=== PATIENT | male | born 1950 | race Caucasian/White ===

== ENCOUNTER 2018-06-14 18:31 | Inpatient (IN) | payer OTHER ==
[~2018-06-14] VITALS: Ht 172.7 cm; Wt 77.1 kg
[~2018-06-14 18:31] MED LIST: ASPIR-LOW81 MG PO; AZITHROMYCIN 2250 MG PO; CARDIZEM CD240 MG PO; CARVEDILOL12.5 MG PO; CEFUROXIME250 MG PO; GUANFACINE PO; LEVOTHYROXIN0.025 MG PO; LIPITOR20 MG PO; VYVANSE40 MG PO; ZESTRIL40 MG PO; ZYLOPRIM100 MG PO
[2018-06-14 18:34] VITALS: BP 199/97
[2018-06-14] MEDS ORDERED: STARLIX120 MG PO (18:38)
[2018-06-14] MEDS ORDERED: LISINOPRIL20 MG PO (18:38)
[2018-06-14] MEDS ORDERED: SYNTHROID50 MCG PO (18:38)
[2018-06-14 19:38] LABS: ABSOLUTE BASOPHILS 0.1 thou/uL (0.0-0.2); ABSOLUTE EOSINOPHILS 0.1 thou/uL (0.0-0.7); ABSOLUTE LYMPHOCYTES 2.2 thou/uL (0.8-5.3); ABSOLUTE MONOCYTES 0.8 thou/uL (0.0-1.2); ABSOLUTE NEUTROPHILS 5.7 thou/uL (1.6-8.1); BASOPHILS 0.6 %; EOSINOPHILS 1.2 %; HEMATOCRIT 42.2 % (42.0-52.0); HEMOGLOBIN 14.4 gm/dL (14.0-18.0); MCH 29.4 pg (26.0-34.0); MCHC 34.3 g/dL (28.0-37.0); MCV 85.8 fL (80.0-100.0); MONOCYTES 9.1 %; MPV 9.2 fl. (7.2-11.1); NUCLEATED RBCS 0 /100WBC; PLATELET COUNT* 236 thou/uL (150-400); POLYS 64.1 %; RBC 4.91 mil/uL (4.50-6.00); RDW-CV 13.6 % (10.5-14.5); WBC 8.9 thou/uL (4.0-11.0)
[2018-06-14 19:44] LABS: ANION GAP 8 mmol/L (7-16); BUN 33 mg/dL (7-18); CALCIUM 9.2 mg/dL (8.5-10.1); CHLORIDE 102 mmol/L (98-107); CO2 28 mmol/L (21-32); CREATININE 2.7 mg/dL (0.6-1.3); GLUCOSE 113 mg/dL (70-99); POTASSIUM 3.9 mmol/L (3.5-5.1); SODIUM 138 mmol/L (136-145)
[2018-06-14 19:47] LABS: PROTIME 10.7 Seconds (9.20-11.50)
[2018-06-14 19:55] LABS: ALBUMIN 3.5 g/dL (3.4-5.0); ALKALINE PHOSPHATASE 79 U/L (46-116); LIPASE 118 U/L (73-393); NT-PRO BRAIN NAT PEPTIDE 5069 pg/mL (<300); SGOT 14 U/L (15-37); SGPT 18 U/L (30-65); TOTAL BILIRUBIN 0.6 mg/dL (<0.1-1.0); TOTAL PROTEIN 7.4 g/dL (6.4-8.2); TROPONIN-I LEVEL <0.06 ng/mL (<0.06)
[2018-06-14 21:28] VITALS: BP 187/102; BP 193/88
[2018-06-15] VITALS (7 sets, daily range): BP systolic 176–222; BP diastolic 84–124
[2018-06-15 09:38] LABS: CHOLESTEROL 236 mg/dL (<200); HDL CHOLESTEROL 53 mg/dL (>40); LDL CHOLESTEROL 163 mg/dL (<100); SERUM ASSESSMENT Clear; TC:HDL 4.5 Ratio (Not establshd); TRIGLYCERIDE 103 mg/dL (<150); VLDL 21 mg/dL (<40)
--- NOTE | 2018-06-15 13:48 | 2DMMODE ---
[place] [address] 2 D/M-MODE ECHOCARDIOGRAM Name: COSTA JORGE Room: [address] IN [facility]#: [id number] Admission: 06/14/18 Attend Phys: Bryce Burciaga, Discharge: Date of : 48 Date of Service: 06/15/18 1348 Report #: [id number] THIS REPORT FOR: //name// APPROVED REPORT Study performed: 06/15/2018 10:03:44 EXAM: Comprehensive 2D, Doppler, and color-flow Echocardiogram Patient Location: In-Patient Room #: [facility] Status: routine BSA: 1.91 HR: 81 bpm BP: 212/124 mmHg Rhythm: Atrial Fibrillation Other Information Study Quality: Good Indications Atrial Fibrillation ?CVA Echo Enhancing Agent Indication: Rule out Shunt Agent(s) / Amount(s) Used: Agitated Saline 10 cc 2D Dimensions LVEF(%): 36.23 (>50%) IVSd: 15.33 (7-11mm) LVOT Diam: 23.42 (18-24mm) LVDd: 51.70 mm PWd: 13.24 (7-11mm) Ascending Ao: 36.36 (22-36mm) LVDs: 42.65 (25-40mm) Aortic Root: 38.53 mm Villegas's LVEF: 36.23 % Volumes Left Atrial Volume (Systole) LA ESV Index: 82.00 mL/m2 Aortic Valve AoV Peak Dawood.: 1.12 m/s AO Peak Gr.: 5.05 mmHg LVOT Max P.53 mmHg AO Mean Gr.: 2.67 mmHg LVOT Mean P.75 mmHg LVOT Max V: 0.62 m/[place] [address] 2 D/M-MODE ECHOCARDIOGRAM Name: COSTA JORGE Room: [address] IN .R.#: [id number] Admission: 06/14/18 Attend Phys: Bryce Burciaga, Discharge: Date of : 48 Date of Service: 06/15/18 1348 Report #: [id number] AO V2 VTI: 17.68 cm LVOT Mean V: 0.40 m/s FABRICIO (VTI): 2.50 cm2 LVOT V1 VTI: 10.28 cm AI Pennington: 0.99 m/s2 AI PHT: 884.77 ms Mitral Valve MV Decel. Time: 112.48 ms MV PHT: 32.62 ms MVA (PHT): 6.74 cm2 TDI Medial E' Dawood.: 0.07 m/s Lateral E' Dawood.: 0.11 m/s Pulmonary Valve PV Peak Dawood.: 0.85 m/s PV Peak Gr.: 2.89 mmHg Tricuspid Valve RAP Estimate: 5.00 mmHg TR Peak Gr.: 29.89 mmHg RVSP: 34.89 mmHg PA Pressure: 34.89 mmHg Left Ventricle The left ventricle is normal size. There is normal LV segmental wall motion. Moderate concentric left ventricular hypertrophy. Left ventricular systolic function is mild to moderately decreased. LVEF is 40-45%. This study is not technically sufficient to allow evaluation of the LV diastolic function due to atrial fibrillation. Right Ventricle The right ventricle is normal size. The right ventricular systolic function is normal. Atria Left atrium is moderately dilated. Interatrial septum is intact without evidence of ASD or PFO. The right atrium size is normal. Aortic Valve Mild aortic valve sclerosis. Mild aortic regurgitation. There is no aortic valvular stenosis. Mitral Valve The mitral valve is normal in structure. Trace mitral regurgitation. No evidence [place] [address] 2 D/M-MODE ECHOCARDIOGRAM Name: COSTA JORGE Room: [address] IN ..#: [id number] Admission: 06/14/18 Attend Phys: Bryce Burciaga, Discharge: Date of : 48 Date of Service: 06/15/18 1348 Report #: [id number] Tricuspid Valve The tricuspid valve is normal in structure. Trace tricuspid regurgitation. Mild pulmonary hypertension. Pulmonic Valve The pulmonary valve is normal in structure. Trace pulmonic regurgitation. Great Vessels The aortic root is normal in size. IVC is normal in size and collapses with >50% inspiration Pericardium There is no pericardial effusion. <Conclusion> The left ventricle is normal size. Moderate concentric left ventricular hypertrophy. Left ventricular systolic function is mild to moderately decreased. LVEF is 40-45%. This study is not technically sufficient to allow evaluation of the LV diastolic function due to atrial fibrillation. The right ventricle is normal size. Left atrium is moderately dilated. Mild aortic valve sclerosis. Mild aortic regurgitation. There is no aortic valvular stenosis. The mitral valve is normal in structure. Trace mitral regurgitation. The tricuspid valve is normal in structure. IVC is normal in size and collapses with >50% inspiration There is no pericardial effusion. There is normal LV segmental wall motion. Interatrial septum is intact without evidence of ASD or PFO. <ELECTRONICALLY SIGNED> By: Isac Fregoso MD, [facility] 06/15/18 1348 47 47 Isac Fregoso MD, FACC /INF
--- NOTE | 2018-06-15 13:55 | EKG ---
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 : 1950 Requested By: Chau Noonan Order Number: [id number] MD: Isac Fregoso Measurements Intervals [place] Rate: 59 P: [place]: QRS: -13 QRSD: 114 T: 166 QT: 537 QTc: 532 Interpretive Statements Atrial fibrillation LVH with IVCD and secondary repol abnrm Prolonged QT interval Compared to ECG 11/02/2015 21:28:07 Intraventricular conduction delay now present Prolonged QT interval now present Sinus tachycardia no longer present Electronically Signed On 06-15-2018 13:55:45 CDT by Isac Fregoso [email or web address] <ELECTRONICALLY SIGNED> By: Isac Fregoso MD, [facility] 06/15/18 [id number] Isac Fregoso MD, FAC /EPI
[2018-06-16 00:30] VITALS: BP 184/97
[2018-06-16 04:06] LABS: GLYCOHEMOGLOBIN (HGB A1C) 6.3 % (4.8-5.6)
[2018-06-16 08:00] VITALS: BP 214/108
[2018-06-16 11:51] VITALS: BP 192/92
[2018-06-16 12:07] LABS: CREATININE 2.5 mg/dL (0.6-1.3); POTASSIUM 3.8 mmol/L (3.5-5.1)
[2018-06-16 16:07] VITALS: BP 188/93
[2018-06-16 19:15] VITALS: BP 163/83
[2018-06-16 19:55] VITALS: BP 181/85
[2018-06-17] VITALS: BP 187/93
[2018-06-17 04:00] VITALS: BP 190/99
[2018-06-17 08:00] VITALS: BP 201/105
[2018-06-17] MEDS ORDERED: HYDRALAZINE 2525 MG PO (10:08)
[2018-06-17] MEDS ORDERED: ASPIR 8181 MG PO (10:08)
[2018-06-17] MEDS ORDERED: ATORVASTATIN CA80 MG PO (10:08)
[2018-06-17] MEDS ORDERED: ELIQUIS5 MG PO (10:08)
[2018-06-17] MEDS ORDERED: HYDROCHLOROTHIA25 M2 PO (10:09)
[2018-06-17 11:24] VITALS: BP 201/105
[2018-06-17 11:58] VITALS: BP 149/75
[2018-06-17 13:04] VITALS: BP 149/75
[2018-06-17] MEDS ORDERED: COREG6.25 MG PO (13:28)
[2018-06-17] MEDS ORDERED: STARLIX60 MG PO (13:54)
--- NOTE | 2018-06-22 13:49 | CON ---
[address] [address] CONSULTATION Name: ANIACOSTA Indira Room: [address]R.#: [id number] Admission: 06/14/18 Attend Phys: Bryce Burciaga MD Discharge: 06/17/18 Date of : 48 Report #: [id number] THIS REPORT FOR: //name// CC: Bryce Hraper [facility] REASON FOR CONSULTATION: Acute kidney injury. CONSULTING PHYSICIAN: Bryce Burciaga MD HISTORY OF PRESENT ILLNESS: A 68-year-old gentleman with a history of stage IV chronic kidney disease, admitted with acute ischemic stroke of the posterior right occipital lobe and hypertensive emergency. He was seen by Cardiology as well as Neurology. He last saw Dr. Beebe in the office on 06/08/2018. He is hoping to go home soon. He really does not have any complaints at present time. REVIEW OF SYSTEMS: Constitutional, psych, heme, eyes, ENT, respiratory, cardiac, GI, , endocrine, all negative except as documented above. PAST MEDICAL HISTORY: Chronic kidney disease stage 4, hypertension, diabetes type 2, history of left renal cyst hemorrhagic, proteinuria, history of diastolic heart failure, degenerative joint disease, hypothyroidism, dyslipidemia, prostate cancer, history of alcohol abuse. MEDICATIONS: Reviewed. SOCIAL HISTORY: Positive history of tobacco use. FAMILY HISTORY: Sister had kidney disease. Father had diabetes and hypertension. PHYSICAL EXAMINATION: VITAL SIGNS: Blood pressure 240/108, pulse 69, temperature 36.8. GENERAL: No acute distress. EYES: Open. EARS: Externally normal. CARDIOVASCULAR: Regular rate. LUNGS: Clear to auscultation. ABDOMEN: Soft. LYMPHATICS: No pitting edema. PSYCHIATRIC: Awake, alert. LABORATORY DATA: White cell count 8.9, hemoglobin 14.4, platelets 236. Lab from 06/14/2018, sodium 138, potassium 3.9, chloride 102, bicarbonate 28, BUN 33, creatinine 2.7, glucose 133, calcium 9.2, albumin 3.5. ASSESSMENT: [place] [address] CONSULTATION Name: COSTA JORGE Room: [address]#: [id number] Admission: 06/14/18 Attend Phys: Bryce Burciaga MD Discharge: 06/17/18 Date of : 48 Report #: [id number] 1. Chronic kidney disease stage 4, followed by Dr. Beebe as an outpatient. Recent outpatient creatinine on 05/24/2018 was 2.6, which was slightly above his usual baseline. He was to follow up in [address] Beebe. 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 2. Hypertension. Hydrochlorothiazide in the past was felt to interfere with blood sugars, amlodipine caused lower extremity edema, and doxazosin cause nasal stuffiness. 3. Proteinuria with 05/24/2018 urine protein of 2995. 4. Diabetes type 2. 5. Renal mass. A 11/2017 ultrasound showed a stable exophytic left renal mass consistent with a hemorrhagic or proteinaceous cyst. 6. History of diastolic heart failure. 7. Acute ischemic cerebrovascular accident of the right occipital lobe. 8. History of atrial fibrillation. 9. History of kidney stone. 10. History of seizures. 11. History of alcohol abuse. PLAN: 1. We will check lab now. Renal function on admission was fairly stable and close to his baseline. 2. EF is 40-45%. Cardiology is following. 3. We will consult pharmacy to make recommendations on Eliquis dosing given his renal function. 4. Blood pressure goal to be set by Neurology. We will defer to them, happy to make adjustments in medications if needed. 5. We will follow. Once ready for discharge, he can follow up in our office with Dr. Beebe as an outpatient. Thank you for requesting my opinion in the care and management of this patient. <ELECTRONICALLY SIGNED> By: Blaine Ro MD 06/22/18 1349 1121 [id number] Ro MD /nt
== END 2018-06-17 15:00 | disposition home or self-care (01) | DRG 64 ==
LOC: M.ERS 18:31 → M.TBA-ER 20:45 → M.2W 20:45
PROVIDERS: Emergency Medicine; Internal Medicine; Internal Medicine Nephrology; ADMIT Internal Medicine
DX: I63.9 Cerebral infarction, unspecified (principal); I50.21 Acute systolic (congestive) heart failure; I16.1 Hypertensive emergency; N18.4 Chronic kidney disease, stage 4 (severe); I42.9 Cardiomyopathy, unspecified; I13.0 Hypertensive heart and chronic kidney disease with heart failure and stage 1 through stage 4 chronic kidney disease, or unspecified chronic kidney disease; G40.909 Epilepsy, unspecified, not intractable, without status epilepticus; I48.91 Unspecified atrial fibrillation; E11.22 Type 2 diabetes mellitus with diabetic chronic kidney disease; M19.90 Unspecified osteoarthritis, unspecified site; H53.47 Heteronymous bilateral field defects; E03.9 Hypothyroidism, unspecified; Z85.46 Personal history of malignant neoplasm of prostate; Z83.3 Family history of diabetes mellitus; Z82.49 Family history of ischemic heart disease and other diseases of the circulatory system; Z87.442 Personal history of urinary calculi; Z98.42 Cataract extraction status, left eye; Z98.41 Cataract extraction status, right eye; Z88.6 Allergy status to analgesic agent; Z88.2 Allergy status to sulfonamides; Z88.8 Allergy status to other drugs, medicaments and biological substances; Z84.1 Family history of disorders of kidney and ureter; Z79.82 Long term (current) use of aspirin; Z79.899 Other long term (current) drug therapy; Z98.49 Cataract extraction status, unspecified eye; Z87.891 Personal history of nicotine dependence

== ENCOUNTER 2018-07-01 18:32 | Emergency (ER) | payer OTHER ==
[~2018-07-01] VITALS: Ht 172.7 cm; Wt 74.8 kg
[~2018-07-01 18:32] MED LIST changes: +ASPIR 8181 MG PO; +ATORVASTATIN CA80 MG PO; +COREG6.25 MG PO; +ELIQUIS5 MG PO; +HYDRALAZINE 2525 MG PO; +HYDROCHLOROTHIA25 M2 PO; +LISINOPRIL20 MG PO; +STARLIX120 MG PO; +STARLIX60 MG PO; +SYNTHROID50 MCG PO
[2018-07-01] MEDS ORDERED: LIPITOR 20 MG T20 M1 PO (18:45)
[2018-07-01] MEDS ORDERED: LASIX 20 MG TAB20 MG PO (18:46)
[2018-07-01] MEDS ORDERED: ZOFRAN4 MG PO (19:41)
[2018-07-01] MEDS ORDERED: BENTYL 20 MG TA20 M1 PO (19:41)
[2018-07-01] MEDS ORDERED: MIRALAX17 GM PO (19:53)
[2018-07-01 20:17] VITALS: BP 183/78
== END 2018-07-01 20:20 | disposition home or self-care (01) ==
LOC: M.ERS 18:32
DX: K59.00 Constipation, unspecified (principal); I48.91 Unspecified atrial fibrillation; I11.0 Hypertensive heart disease with heart failure; I50.9 Heart failure, unspecified; E11.9 Type 2 diabetes mellitus without complications; Z86.73 Personal history of transient ischemic attack (TIA), and cerebral infarction without residual deficits; Z86.2 Personal history of diseases of the blood and blood-forming organs and certain disorders involving the immune mechanism; Z88.5 Allergy status to narcotic agent; Z88.2 Allergy status to sulfonamides; Z88.1 Allergy status to other antibiotic agents; Z88.8 Allergy status to other drugs, medicaments and biological substances

== ENCOUNTER 2018-10-30 13:08 | Emergency (ER) | payer OTHER ==
[~2018-10-30] VITALS: Ht 172.7 cm; Wt 81.7 kg
[~2018-10-30 13:08] MED LIST changes: +BENTYL 20 MG TA20 M1 PO; +CARVEDILOL3.125 MG PO; -COREG6.25 MG PO; -GUANFACINE PO; +INTUNIV2 MG PO; +LASIX 20 MG TAB20 MG PO; +LIPITOR 20 MG T20 M1 PO; +MIRALAX17 GM PO; +ZOFRAN4 MG PO
[2018-10-30] MEDS ORDERED: CLARITIN10 MG PO (13:23)
[2018-10-30] MEDS ORDERED: VITAMIN D2000 UNIT PO (13:24)
[2018-10-30] MEDS ORDERED: FLONASE 0.05%50 MCG NASAL (13:24)
[2018-10-30] MEDS ORDERED: ASTEPRO205.5 MCG/ NASAL (13:24)
[2018-10-30] MEDS ORDERED: CO Q-10100 MG PO (13:25)
[2018-10-30] MEDS ORDERED: OMEGA-31000 M1 PO (13:25)
[2018-10-30 13:56] LABS: ABSOLUTE BASOPHILS 0.1 thou/uL (0.0-0.2); ABSOLUTE EOSINOPHILS 0.2 thou/uL (0.0-0.7); ABSOLUTE LYMPHOCYTES 1.4 thou/uL (0.8-5.3); BASOPHILS 0.5 %; EOSINOPHILS 1.6 %; HEMATOCRIT 37.2 % (42.0-52.0); HEMOGLOBIN 12.9 gm/dL (14.0-18.0); LYMPHOCYTES 13.2 %; MCH 30.1 pg (26.0-34.0); MCHC 34.7 g/dL (28.0-37.0); MCV 86.6 fL (80.0-100.0); MONOCYTES 9.5 %; MPV 8.6 fl. (7.2-11.1); NUCLEATED RBCS 0 /100WBC; PLATELET COUNT* 234 thou/uL (150-400); POLYS 75.2 %; RBC 4.29 mil/uL (4.50-6.00); RDW-CV 14.6 % (10.5-14.5); WBC 10.6 thou/uL (4.0-11.0)
[2018-10-30 14:03] LABS: ANION GAP 6 mmol/L (7-16); BUN 26 mg/dL (7-18); CALCIUM 9.1 mg/dL (8.5-10.1); CHLORIDE 103 mmol/L (98-107); CO2 30 mmol/L (21-32); CREATININE 2.4 mg/dL (0.6-1.3); GLUCOSE 168 mg/dL (70-99); POTASSIUM 3.9 mmol/L (3.5-5.1); SODIUM 139 mmol/L (136-145)
[2018-10-30 14:11] LABS: APTT 32.7 Seconds (25.0-31.3); INR 1.1; PROTIME 11.4 Seconds (9.20-11.50)
[2018-10-30 14:14] LABS: ALBUMIN 3.1 g/dL (3.4-5.0); ALKALINE PHOSPHATASE 104 U/L (46-116); NT-PRO BRAIN NAT PEPTIDE 5453 pg/mL (<300); SGOT 13 U/L (15-37); SGPT 21 U/L (30-65); TOTAL BILIRUBIN 0.6 mg/dL (<0.1-1.0); TOTAL PROTEIN 6.8 g/dL (6.4-8.2); TROPONIN-I LEVEL <0.06 ng/mL (<0.06)
[2018-10-30 14:44] VITALS: BP 189/100
--- NOTE | 2018-10-31 15:29 | EKG ---
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 : 1950 Requested By: Misael Shaffer Order Number: [id number] MD: Leroy Khan Measurements Intervals [place] Rate: 65 P: [place]: QRS: -18 QRSD: 119 T: 163 QT: 415 QTc: 432 Interpretive Statements Atrial fibrillation LVH with secondary repolarization abnormality Compared to ECG 06/14/2018 18:43 Prolonged QT interval no longer present Electronically Signed On 10-31-2018 15:29:04 STUDENT OUTREACH COORDINATOR by Leroy Khan [email or web address] <ELECTRONICALLY SIGNED> By: Leroy Khan MD, [facility] 10/31/18 1529 1338 37 Leroy Khan MD, FACC /EPI
== END 2018-10-30 14:45 | disposition home or self-care (01) ==
LOC: M.ERS 13:08
PROVIDERS: Family Medicine
DX: R06.00 Dyspnea, unspecified (principal); R06.02 Shortness of breath; E11.9 Type 2 diabetes mellitus without complications; I11.0 Hypertensive heart disease with heart failure; I50.9 Heart failure, unspecified; I48.91 Unspecified atrial fibrillation; Z87.891 Personal history of nicotine dependence; Z88.2 Allergy status to sulfonamides; Z88.5 Allergy status to narcotic agent; Z88.8 Allergy status to other drugs, medicaments and biological substances

== ENCOUNTER 2018-12-13 09:41 | Inpatient (IN) | payer OTHER ==
[~2018-12-13] VITALS: Ht 172.7 cm; Wt 82.1 kg
[2018-12-13] VITALS (19 sets, daily range): BP systolic 132–230; BP diastolic 86–118
--- NOTE | ~2018-12-13 | CON ---
[address] [address] CONSULTATION Name: COSTA JORGE Room: [address] IN M.R.#: [id number] Admission: 12/13/18 Attend Phys: Bryce Burciaga MD Discharge: Date of : 48 Report #: [id number] THIS REPORT FOR: //name// CC: Bryce Harper [facility] DATE OF SERVICE: 12/13/2018 REQUESTING PHYSICIAN: Bryce Burciaga M.D. REASON FOR CONSULTATION: Chronic kidney disease, stage 4. HISTORY OF PRESENT ILLNESS: The patient is a 68-year-old white man with medical history significant for chronic kidney disease stage 4, hypertension, proteinuria, presents to the hospital with complaints of shortness of breath, cough, and dyspnea. The patient's symptoms started several days ago, but got significantly worse 1 day prior to admission. Initially, there was even a possibility of him being intubated. This patient was given IV Solu-Medrol, started on Tamiflu and on antibiotics, feels much better now and he actually wants to go home. SOCIAL HISTORY: No tobacco or alcohol abuse. FAMILY HISTORY: Noncontributory. MEDICATIONS PRIOR TO ADMISSION: Reviewed. REVIEW OF SYSTEMS: Positive for upper respiratory symptoms, which is now much better. PHYSICAL EXAMINATION: GENERAL: Awake, alert, oriented, no acute distress. VITAL SIGNS: Blood pressure 130/90, heart rate 77, temperature 37.6. HEENT: Pupils are round. NECK: Supple. LUNGS: Clear. CARDIOVASCULAR: Regular rate. ABDOMEN: Soft. LOWER EXTREMITIES: No edema. LABORATORY DATA: Report creatinine 2.5, which is his baseline. ASSESSMENT: 1. Chronic kidney disease, stage 4. Renal function at his baseline. 2. Possible influenza. 3. [place] [address] CONSULTATION Name: COSTA JORGE Room: [address] IN [facility]#: [id number] Admission: 12/13/18 Attend Phys: Bryce Burciaga MD Discharge: Date of : 48 Report #: [id number] PLAN: Continue with antibiotics. Continue with Tamiflu. From my standpoint, he is doing well. I will sign off. Follow up with Dr. Beebe. By: 1537 [id number] Jett MD /HEMA
[~2018-12-13 09:41] MED LIST changes: +ASTEPRO205.5 MCG/ NASAL; +CLARITIN10 MG PO; +CO Q-10100 MG PO; +FLONASE 0.05%50 MCG NASAL; +OMEGA-31000 M1 PO; +VITAMIN D2000 UNIT PO
[2018-12-13 10:11] LABS: ABSOLUTE EOSINOPHILS 0.1 thou/uL (0.0-0.7); ABSOLUTE LYMPHOCYTES 1.7 thou/uL (0.8-5.3); ABSOLUTE MONOCYTES 1.2 thou/uL (0.0-1.2); ABSOLUTE NEUTROPHILS 5.9 thou/uL (1.6-8.1); BASOPHILS 0.5 %; EOSINOPHILS 0.8 %; HEMATOCRIT 40.1 % (42.0-52.0); HEMOGLOBIN 13.9 gm/dL (14.0-18.0); LYMPHOCYTES 18.6 %; MCH 29.8 pg (26.0-34.0); MCHC 34.7 g/dL (28.0-37.0); MONOCYTES 13.6 %; NUCLEATED RBCS 0 /100WBC; PLATELET COUNT* 195 thou/uL (150-400); POLYS 66.5 %; RBC 4.66 mil/uL (4.50-6.00); RDW-CV 14.5 % (10.5-14.5); WBC 8.9 thou/uL (4.0-11.0)
[2018-12-13 10:33] LABS: CALCIUM 9.2 mg/dL (8.5-10.1); CREATININE 2.5 mg/dL (0.6-1.3); POTASSIUM 3.6 mmol/L (3.5-5.1); TROPONIN-I LEVEL 0.06 ng/mL (<0.06)
[2018-12-13 10:34] LABS: ALBUMIN 3.4 g/dL (3.4-5.0); APTT 32.6 Seconds (25.0-31.3); INR 1.1; PROTIME 10.8 Seconds (9.20-11.50); TOTAL BILIRUBIN 0.5 mg/dL (<0.1-1.0); TOTAL PROTEIN 7.2 g/dL (6.4-8.2)
[2018-12-13 11:41] LABS: INFLUENZA A ANTIGEN None Detected (None Detect); INFLUENZA B ANTIGEN None Detected (None Detect)
[2018-12-13 12:04] LABS: BE -1.9 mmol/L (-2 to +3); PCO2 30.6 mmHg (35.0-45.0); pH 7.453 (7.340-7.450)
[2018-12-13 12:07] LABS: PO2 173.9 mmHg (75.0-100.0)
--- NOTE | 2018-12-13 16:36 | EKG ---
[place] [address] ELECTROCARDIOGRAM REPORT Name: COSTA JORGE Room: [address] ADM IN M.R.#: [id number] Admission: 12/13/18 Attend Phys: Bryce Burciaga MD Discharge: Date of : 48 Report #: [id number] THIS REPORT FOR: //name// 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: Da JOHNSON : 1950 Requested By: Misael Shaffer Order Number: [id number] MD: Isac Fregoso Measurements Intervals [place] Rate: 115 P: [place]: QRS: -19 QRSD: 112 T: 177 QT: 318 QTc: 440 Interpretive Statements Atrial fibrillation LVH with IVCD and secondary repol abnrm Baseline wander in lead(s) II,V1,V2,V4,V6 Compared to ECG 10/30/2018 13:38:28 Intraventricular conduction delay now present Electronically Signed On 12-13-2018 16:35:50 QUALITY ASSURANCE CALIBRATOR by Isac Fregoso [email or web address] <ELECTRONICALLY SIGNED> By: Isac Fregoso MD, [facility] 12/13/18 1635 0947 0947 Isac Fregoso MD, FAC /EPI
[2018-12-14] VITALS (20 sets, daily range): BP systolic 107–214; BP diastolic 59–146
[2018-12-14 04:33] LABS: HEMATOCRIT 37.2 % (42.0-52.0); HEMOGLOBIN 13.1 gm/dL (14.0-18.0); MCH 29.6 pg (26.0-34.0); MCHC 35.4 g/dL (28.0-37.0); MCV 83.8 fL (80.0-100.0); MPV 8.8 fl. (7.2-11.1); NUCLEATED RBCS 0 /100WBC; PLATELET COUNT* 190 thou/uL (150-400); RBC 4.43 mil/uL (4.50-6.00); RDW-CV 14.1 % (10.5-14.5); WBC 10.4 thou/uL (4.0-11.0)
[2018-12-14 04:38] LABS: CREATININE 2.6 mg/dL (0.6-1.3); POTASSIUM 3.6 mmol/L (3.5-5.1); TROPONIN-I LEVEL 0.07 ng/mL (<0.06)
[2018-12-14 06:44] LABS: ABSOLUTE LYMPHOCYTES 0.8 thou/uL (0.8-5.3); ABSOLUTE MONOCYTES 0.5 thou/uL (0.0-1.2); ANISOCYTOSIS 1+; PLATELET ESTIMATE ADEQUATE; POIKILOCYTOSIS 1+
--- NOTE | 2018-12-14 07:37 | CON ---
[address] [address] CONSULTATION Name: COSTA JORGE Room: [address] IN M.R.#: [id number] Admission: 12/13/18 Attend Phys: Bryce Burciaga MD Discharge: Date of : 48 Report #: [id number] THIS REPORT FOR: //name// CC: Bryce Rowanmaximo DATE OF SERVICE: 12/13/[address] Bryce Burciaga. INDICATION FOR CONSULTATION: Acute hypoxemic respiratory failure. HISTORY OF PRESENT ILLNESS: This is a 68-year-old gentleman. His past medical history includes a history of empyema in the left chest for which he underwent a thoracotomy in this institution in 2002. The patient also has had chronic renal failure. His baseline creatinine from 3 or 4 years ago was 2.0 and 2.5 last year. The patient has a remote history of smoking cigars. The patient does not have a heavy history of smoking cigarettes. The patient was last seen in this hospital in the Emergency Room in October when he had presented with shortness of breath. He was not admitted at that time. He was treated with azithromycin. The patient and his now describe that there are several people that are sick at his workplace and having similar symptoms as him. He reports having had increase in shortness of breath over the last several days, he has had a cough. There is not much sputum. If he does get sputum, then it is clear. He also this morning had a high-grade fever recorded at 101 degrees Fahrenheit at home. He has had some nasal discharge as well as sore throat; however, these are not major complaints for him. His temperature on arrival here was 37.6. The patient is reported to be severely short of breath. In the ER, initially endotracheal intubation was considered. The patient, however, stabilized on BiPAP. Currently, in fact, he is fairly stable on 26/03 with 40% FiO2 with a BiPAP in place. He did receive one dose of Solu-Medrol as well as Lasix in the ER. He, at this time, does not appear to be fluid overloaded on my exam. The patient is noted to be on anticoagulation on account of having a history of atrial fibrillation. The patient does not describe any urinary complaints. REVIEW OF SYSTEMS: A 12-point review of systems was performed. The patient answered to the negative for all other questions for review of systems except as mentioned above. PAST MEDICAL HISTORY: Empyema requiring a left-sided thoracotomy in 2002 in this hospital. The patient's states that this was due to a staph infection. However, I do not have the cultures available at this time. Chronic renal failure, he follows with Dr. Beebe. His baseline creatinine from 3 or [address] [place] [address] CONSULTATION Name: COSTA JORGE Room: [address] IN .R.#: [id number] Admission: 12/13/18 Attend Phys: Bryce Burciaga MD Discharge: Date of : 48 Report #: [id number] years ago was 2.0 and 2.5 last year. Atrial fibrillation, he has been on Eliquis. He has an echo, which was performed last year, shows left ventricular hypertrophy. The left ventricular ejection fraction is 45%. He was in atrial fibrillation at the time of the echo with mild aortic regurgitation. Tricuspid valve was unremarkable. He was checked for shunt at that time and none was detected, hyperlipidemia, allergic rhinitis, cataracts, glaucoma, seizure disorder, stroke, prostatectomy, diverticulitis, hypertension, diabetes. SOCIAL HISTORY: He has a remote history of smoking cigars. He is not known to have been smoking cigarettes. There is a history of heavy alcohol intake in the past. There is no recent alcohol intake according to the patient and family. There is no known history of illegal drug use. CURRENT MEDICATIONS: The list is in [employer] and is reviewed. HOME MEDICATIONS: The list is also in [employer] and is reviewed. ALLERGIES: There are several medications listed as allergies. It does not appear to me that the patient in fact is allergic to most of these medications including noted that prednisone is mentioned as an allergy, however, the patient has had visual changes as well as anxiety with steroids, which are more side effects than a true allergy. He has had nausea with opiates. This is also a side effect and not a true allergy. Same is the case with amlodipine. Swelling with amlodipine also appears to be a side effect and not an allergy. Nasal congestion to doxazosin again appears to be a side effect and not an allergy. HE REPORTS ALLERGIES TO SULFAMETHOXAZOLE WELL. FAMILY HISTORY: There is no pertinent family history. PHYSICAL EXAMINATION: GENERAL: Obese, somewhat anxious, but is alert, awake and oriented. VITAL SIGNS: He is on a BiPAP of 16/6 with 40% FiO2, saturating 100%. His pulse is 77, blood pressure is 132/93, his respiratory rate is 16. His tidal volume is around 700. His temperature is 37.6. HEENT: Head is normocephalic and atraumatic. No throat erythema is identified; however, throat examination is limited due to presence of BiPAP. NECK: Does not show raised JVP, asymmetry, mass or lymph nodes. CHEST: Breath sounds are decreased at the left lung base. The rest of the chest does not show added sounds. HEART: Regular. There is no murmur. ABDOMEN: Soft and nontender. EXTREMITIES: Lower extremities show no edema, no calf tenderness. SKIN: Dry and intact. NEUROLOGICAL: Moves all extremities bilaterally equally and spontaneously with [place] [address] CONSULTATION Name: COSTA JORGE Room: [address] IN [facility]#: [id number] Admission: 12/13/18 Attend Phys: Bryce Burciaga MD Discharge: Date of : 48 Report #: [id number] LABORATORY DATA: The patient's chest x-ray is reviewed. There is an old radiopaque density at the left lung base. There is a radiopaque density noted in the right middle lobe as well, which is consistent with an infiltrate, this is unchanged compared with the chest x-ray performed in October, but is new compared with the chest x-ray performed last year. The patient's lab work includes a CBC as well as chemistries are in [facility] and these are reviewed. Coagulation studies and arterial blood gas also in [facility] reviewed. Rapid swab for influenza is negative. ASSESSMENT AND PLAN: 1. Acute hypoxemic respiratory failure. While bacterial pneumonia will also be possible as the primary etiology, at first glance, it appears more likely to me that we are dealing with viral respiratory tract illness leading to acute respiratory failure and also a component of bronchospasm. At this time, the patient is doing well on the BiPAP; I therefore recommend that we can take him off BiPAP during the daytime if tolerated. For now, the patient is willing to wear BiPAP while asleep and this may be of benefit. 2. Viral respiratory tract illness/possible influenza. The patient's history is consistent with a viral respiratory tract infection. His symptoms are also consistent with influenza. Therefore, I recommend that he be placed in droplet isolation. We will do a viral respiratory panel and until the same is available, I recommend that we treat him with Tamiflu which is ordered. 3. Pulmonary infiltrate. There is a radiopaque density in the right middle lobe region. This is unchanged compared with October, but is new compared with last year. Dr. Burciaga has ordered Levaquin. I agree with treating him with Levaquin. We will watch closely. Should the patient fail to improve or if his condition deteriorates, then I will have a low threshold of adding linezolid. Note that in case he does have influenza and there is a significant possibility of superinfection with Staphylococcus aureus, I do not recommend administering vancomycin. The patient is very high risk of nephrotoxicity from vancomycin. 4. Bronchospasm. I feel that there is a component of this also. The patient and family are reluctant to receive steroids. He did receive a dose of Solu-Medrol in the Emergency Room and I agree with this. I may cautiously order a couple more doses of steroids. We will continue with DuoNeb. 5. Chronic renal failure as noted above. The patient does not appear to have significant fluid overload at the time of exam. 6. Atrial fibrillation noted to be on anticoagulation. 7. Past medical history of left-sided empyema, status post thoracotomy in 2002. The patient is critically ill at this time. Total time spent providing critical care to this patient today is 45 minutes. <ELECTRONICALLY SIGNED> By: Tyson Sullivan MD 12/14/18 0737 1310 [id number] Jaquez MD /nt
[2018-12-15] VITALS: BP 156/83
[2018-12-15 03:48] LABS: HEMATOCRIT 36.1 % (42.0-52.0); HEMOGLOBIN 12.6 gm/dL (14.0-18.0); MCH 29.8 pg (26.0-34.0); MCHC 34.8 g/dL (28.0-37.0); MCV 85.6 fL (80.0-100.0); MPV 8.9 fl. (7.2-11.1); RBC 4.22 mil/uL (4.50-6.00); RDW-CV 14.7 % (10.5-14.5); WBC 12.6 thou/uL (4.0-11.0)
[2018-12-15 04:00] VITALS: BP 207/100
[2018-12-15 04:02] LABS: CALCIUM 9.1 mg/dL (8.5-10.1); CREATININE 3.1 mg/dL (0.6-1.3); MAGNESIUM 1.8 mg/dL (1.8-2.4); POTASSIUM 4.1 mmol/L (3.5-5.1)
[2018-12-15 08:00] VITALS: BP 175/77
[2018-12-15 12:38] VITALS: BP 162/89
[2018-12-15 15:12] LABS: URINE BILIRUBIN NEGATIVE (Negative); URINE BLOOD 1+ (Negative); URINE CLARITY CLEAR; URINE COLOR YELLOW; URINE GLUCOSE-RANDOM NEGATIVE (Negative); URINE KETONES NEGATIVE (Negative); URINE LEUKOCYTES-REFLEX NEGATIVE (Negative); URINE NITRITE-REFLEX NEGATIVE (Negative); URINE PROTEIN 2+ (Negative); URINE SPECIFIC GRAVITY 1.025 (1.005-1.030); URINE UROBILINOGEN 0.2 E.U./dl (0.2-1.0)
[2018-12-15 15:30] LABS: HYALINE CASTS 4-10 Moderate /LPF (None Seen)
[2018-12-15 15:31] LABS: BACTERIA-REFLEX 1-9 Few /HPF (None Seen); CRYSTALS None Seen /LPF (None Seen); MUCUS None Seen strn/LPF (None Seen); SQUAMOUS NONE SEEN /LPF (0-3); URINE RBC 0-2 Rare /HPF (0-2); URINE WBC-REFLEX None Seen /HPF (0-5)
[2018-12-16 00:29] VITALS: BP 159/87
[2018-12-16 03:31] VITALS: BP 157/75
[2018-12-16 05:16] LABS: CALCIUM 8.6 mg/dL (8.5-10.1); CREATININE 3.2 mg/dL (0.6-1.3); MAGNESIUM 1.9 mg/dL (1.8-2.4); POTASSIUM 3.7 mmol/L (3.5-5.1)
[2018-12-16 09:36] VITALS: BP 155/60
[2018-12-16 16:00] VITALS: BP 137/76
[2018-12-16 23:06] LABS: ADENOVIRUS Negative (Negative); INFLUENZA A Negative (Negative); INFLUENZA B Negative (Negative); METAPNEUMOVIRUS Positive (Negative); PARAINFLUENZA 1 Negative (Negative); PARAINFLUENZA 2 Negative (Negative); PARAINFLUENZA 3 Negative (Negative); RHINOVIRUS Negative (Negative); RSV A Negative (Negative); RSV B Negative (Negative)
[2018-12-17] VITALS: BP 178/84
[2018-12-17 04:35] VITALS: BP 160/87
[2018-12-17 13:07] LABS: HEMATOCRIT 34.7 % (42.0-52.0); HEMOGLOBIN 12.1 gm/dL (14.0-18.0); MCH 29.7 pg (26.0-34.0); MCHC 34.7 g/dL (28.0-37.0); MCV 85.6 fL (80.0-100.0); MPV 8.8 fl. (7.2-11.1); RBC 4.05 mil/uL (4.50-6.00); RDW-CV 14.9 % (10.5-14.5); WBC 7.8 thou/uL (4.0-11.0)
[2018-12-17 13:20] LABS: ALBUMIN 2.4 g/dL (3.4-5.0); CALCIUM 8.5 mg/dL (8.5-10.1); CREATININE 3.5 mg/dL (0.6-1.3); MAGNESIUM 1.9 mg/dL (1.8-2.4); POTASSIUM 3.2 mmol/L (3.5-5.1); TOTAL BILIRUBIN 0.6 mg/dL (<0.1-1.0); TOTAL PROTEIN 5.8 g/dL (6.4-8.2)
[2018-12-17 16:12] VITALS: BP 147/84
[2018-12-17 20:00] VITALS: BP 152/81
[2018-12-18 01:18] VITALS: BP 146/72
[2018-12-18 08:54] LABS: HEMATOCRIT 35.8 % (42.0-52.0); HEMOGLOBIN 12.3 gm/dL (14.0-18.0); MCHC 34.2 g/dL (28.0-37.0); MCV 84.8 fL (80.0-100.0); MPV 9.2 fl. (7.2-11.1); RBC 4.23 mil/uL (4.50-6.00); RDW-CV 14.1 % (10.5-14.5); WBC 5.4 thou/uL (4.0-11.0)
[2018-12-18 09:13] LABS: CALCIUM 8.7 mg/dL (8.5-10.1); CREATININE 3.4 mg/dL (0.6-1.3); MAGNESIUM 2.2 mg/dL (1.8-2.4); POTASSIUM 3.5 mmol/L (3.5-5.1)
[2018-12-18 16:36] VITALS: BP 180/83
[2018-12-18 17:25] VITALS: BP 148/61
[2018-12-18 20:00] VITALS: BP 148/83
[2018-12-19] VITALS (7 sets, daily range): BP systolic 131–166; BP diastolic 70–84
[2018-12-19 08:40] LABS: CALCIUM 8.9 mg/dL (8.5-10.1); CREATININE 3.6 mg/dL (0.6-1.3); POTASSIUM 3.6 mmol/L (3.5-5.1)
[2018-12-20 04:57] LABS: ABSOLUTE LYMPHOCYTES 1.3 thou/uL (0.8-5.3); ABSOLUTE MONOCYTES 1.1 thou/uL (0.0-1.2); ABSOLUTE NEUTROPHILS 8.6 thou/uL (1.6-8.1); BASOPHILS 0.2 %; EOSINOPHILS 0.1 %; HEMATOCRIT 35.3 % (42.0-52.0); HEMOGLOBIN 12.1 gm/dL (14.0-18.0); LYMPHOCYTES 11.4 %; MCHC 34.4 g/dL (28.0-37.0); MCV 84.3 fL (80.0-100.0); MONOCYTES 10.1 %; MPV 8.7 fl. (7.2-11.1); NUCLEATED RBCS 0 /100WBC; PLATELET COUNT* 184 thou/uL (150-400); POLYS 78.2 %; RBC 4.18 mil/uL (4.50-6.00); RDW-CV 14.1 % (10.5-14.5)
[2018-12-20 05:20] LABS: CALCIUM 8.8 mg/dL (8.5-10.1); CREATININE 3.3 mg/dL (0.6-1.3); POTASSIUM 3.2 mmol/L (3.5-5.1)
[2018-12-20 05:43] LABS: CALCIUM 8.5 mg/dL (8.5-10.1); CREATININE 3.1 mg/dL (0.6-1.3); POTASSIUM 3.5 mmol/L (3.5-5.1)
[2018-12-20 10:21] VITALS: BP 131/76
[2018-12-20 12:21] VITALS: BP 185/94
== END 2018-12-20 17:33 | disposition home or self-care (01) | DRG 871 ==
LOC: M.ERS 09:41 → M.3W 10:52 → M.ICU 10:52 → M.TBA-ER 10:52 → M.ICU 11:24 → M.3W 12-14 16:53
PROVIDERS: Family Medicine; Internal Medicine; Internal Medicine Critical Care Medicine; ADMIT Internal Medicine
PROC: 5A09357 Assistance with Respiratory Ventilation, Less than 24 Consecutive Hours, Continuous Positive Airway Pressure (ICD-10-PCS; principal; 2018-12-13)
DX: A41.9 Sepsis, unspecified organism (principal); J15.6 Pneumonia due to other Gram-negative bacteria; J96.01 Acute respiratory failure with hypoxia; I50.33 Acute on chronic diastolic (congestive) heart failure; N17.0 Acute kidney failure with tubular necrosis; J12.3 Human metapneumovirus pneumonia; E43 Unspecified severe protein-calorie malnutrition; J10.08 Influenza due to other identified influenza virus with other specified pneumonia; N18.4 Chronic kidney disease, stage 4 (severe); I13.0 Hypertensive heart and chronic kidney disease with heart failure and stage 1 through stage 4 chronic kidney disease, or unspecified chronic kidney disease; J44.0 Chronic obstructive pulmonary disease with (acute) lower respiratory infection; I48.91 Unspecified atrial fibrillation; E78.5 Hyperlipidemia, unspecified; H40.9 Unspecified glaucoma; G40.909 Epilepsy, unspecified, not intractable, without status epilepticus; E11.22 Type 2 diabetes mellitus with diabetic chronic kidney disease; Z68.27 Body mass index [BMI] 27.0-27.9, adult; Z87.81 Personal history of (healed) traumatic fracture; Z86.73 Personal history of transient ischemic attack (TIA), and cerebral infarction without residual deficits; Z87.891 Personal history of nicotine dependence; Z90.79 Acquired absence of other genital organ(s); Z98.42 Cataract extraction status, left eye; Z98.41 Cataract extraction status, right eye; Z79.01 Long term (current) use of anticoagulants; Z79.51 Long term (current) use of inhaled steroids; Z79.899 Other long term (current) drug therapy; Z88.5 Allergy status to narcotic agent; Z88.2 Allergy status to sulfonamides; Z88.8 Allergy status to other drugs, medicaments and biological substances

== ENCOUNTER 2019-03-04 04:19 | Emergency (ER) | payer OTHER ==
[2019-03-04 04:46] LABS: ABSOLUTE EOSINOPHILS 0.4 thou/uL (0.0-0.7); ABSOLUTE LYMPHOCYTES 4.3 thou/uL (0.8-5.3); ABSOLUTE MONOCYTES 1.2 thou/uL (0.0-1.2); ABSOLUTE NEUTROPHILS 4.8 thou/uL (1.6-8.1); BASOPHILS 0.4 %; EOSINOPHILS 3.4 %; HEMATOCRIT 41.9 % (42.0-52.0); HEMOGLOBIN 14.2 gm/dL (14.0-18.0); LYMPHOCYTES 40.1 %; MCH 29.2 pg (26.0-34.0); MCV 85.8 fL (80.0-100.0); MONOCYTES 11.1 %; MPV 9.1 fl. (7.2-11.1); NUCLEATED RBCS 0 /100WBC; PLATELET COUNT* 251 thou/uL (150-400); RBC 4.89 mil/uL (4.50-6.00); RDW-CV 15.5 % (10.5-14.5); WBC 10.7 thou/uL (4.0-11.0)
[2019-03-04 04:57] LABS: CALCIUM 9.6 mg/dL (8.5-10.1); CREATININE 2.5 mg/dL (0.6-1.3); POTASSIUM 4.2 mmol/L (3.5-5.1)
[2019-03-04 04:59] LABS: INR 1.1; PROTIME 11.1 Seconds (9.20-11.50)
[2019-03-04 05:02] LABS: ALBUMIN 3.7 g/dL (3.4-5.0); TOTAL BILIRUBIN 0.5 mg/dL (<0.1-1.0); TOTAL PROTEIN 7.7 g/dL (6.4-8.2)
[2019-03-04 06:40] VITALS: BP 190/118
--- NOTE | 2019-03-07 12:50 | EKG ---
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: : 1950 Requested By: Tremayne Rosa Order Number: [id number] MD: Leroy Khan Measurements Intervals [place] Rate: 109 P: [place]: QRS: -1 QRSD: 117 T: 155 QT: 346 QTc: 467 Interpretive Statements Atrial fibrillation with pvc LVH with secondary repolarization abnormality Anterior Q waves, possibly due to LVH Baseline wander in lead(s) V6 Compared to ECG 12/13/2018 09:47:28 Q waves now present Electronically Signed On 03-07-2019 12:50:40 CDT by Leroy Khan [email or web address] <ELECTRONICALLY SIGNED> By: Leroy Khan MD, [facility] 03/07/19 1250 0508 0508 Leroy Khan MD, [facility] /EPI
== END 2019-03-04 06:40 | disposition short-term general hospital (02) ==
LOC: M.ERS 04:19
PROVIDERS: Emergency Medicine Emergency Medical Services
DX: I61.8 Other nontraumatic intracerebral hemorrhage (principal); E11.9 Type 2 diabetes mellitus without complications; I11.0 Hypertensive heart disease with heart failure; I50.9 Heart failure, unspecified; I48.91 Unspecified atrial fibrillation; Z87.891 Personal history of nicotine dependence; Z88.8 Allergy status to other drugs, medicaments and biological substances; Z86.2 Personal history of diseases of the blood and blood-forming organs and certain disorders involving the immune mechanism; Z88.5 Allergy status to narcotic agent; Z88.2 Allergy status to sulfonamides